=== PATIENT | male | born 1985 | race African-American/Black ===

== ENCOUNTER 2022-01-31 08:00 | Outpatient (CLI) | payer OTHER ==
[2022-01-31 12:48] LABS: ALBUMIN 4.8 g/dL (3.2-5.5); ALBUMIN/GLOBULIN RATIO 1.3 (1.0-2.2); BILIRUBIN,TOTAL 1.1 mg/dL (0.2-1.0); CALCIUM 9.3 mg/dL (8.5-10.3); CREATININE 1.1 mg/dL (0.6-1.2); POTASSIUM 3.9 mmol/L (3.5-5.0); TOTAL PROTEIN 8.5 g/dL (6.7-8.2)
[2022-01-31 13:10] LABS: BILIRUBIN,URINE NEGATIVE (NEGATIVE); GLUCOSE, URINE (UA) NEGATIVE (NEGATIVE); KETONES,URINE (UA) NEGATIVE (NEGATIVE); LEUKOCYTE ESTERASE, URINE NEGATIVE (NEGATIVE); NITRITE,URINE NEGATIVE (NEGATIVE); OCCULT BLOOD,URINE TRACE-INTA (NEGATIVE); PH,URINE 7.5 PH (5.0-7.5); PROTEIN,URINE NEGATIVE (NEGATIVE); UROBILINOGEN,URINE 0.2 (NORMAL) E.U./dL (NORMAL)
[2022-01-31 13:15] LABS: BASOPHILS # (AUTO) 0.1 10^3/uL (0.0-0.1); BASOPHILS % (AUTO) 0.5 %; EOSINOPHILS # (AUTO) 0.1 10^3/uL (0.0-0.7); EOSINOPHILS % (AUTO) 1.1 %; HCT - HEMATOCRIT 47.5 % (42.0-52.0); HGB - HEMOGLOBIN 15.2 g/dL (14.0-18.0); LYMPHOCYTES # (AUTO) 2.8 10^3/uL (1.5-3.5); LYMPHOCYTES % (AUTO) 27.3 %; MEAN CORPUSCULAR VOLUME 84.5 fL (80.0-94.0); MEAN PLATELET VOLUME 11.6 fL (7.4-11.4); MONOCYTES # (AUTO) 0.7 10^3/uL (0.0-1.0); NEUTROPHILS # (AUTO) 6.6 10^3/uL (1.5-6.6); NEUTROPHILS % (AUTO) 63.9 %; PLT - PLATELET COUNT 274 10^3/uL (130-450); RED BLOOD COUNT 5.62 10^6/uL (4.70-6.10); RED CELL DISTRIBUTION WIDTH 12.8 % (12.0-15.0); WHITE BLOOD COUNT 10.4 x10^3/uL (4.8-10.8)
[2022-01-31 13:47] LABS: CLARITY,URINE CLEAR (CLEAR)
== END 2022-01-31 23:59 ==
LOC: LAB.N 08:00
PROVIDERS: ATTEND Nurse Practitioner
DX: R19.7 Diarrhea, unspecified (principal)
CPT/HCPCS: 36415; 80053; 81001; 81003; 82150; 83690; 85025; 87086

== ENCOUNTER 2022-02-01 17:57 | Emergency (ER) | payer OTHER ==
[2022-02-01 18:06] VITALS: BP 152/94
[2022-02-01] MEDS ORDERED: MAG HYDROX/AL HYDROX/SIMETH 30 ML UDC PO STA (18:18)
[2022-02-01] MEDS ORDERED: LIDOCAINE VISCOUS 2% 15 ML UDC MM STA (18:18)
--- NOTE | 2022-02-01 18:19 | ED Physician Documentation ---
PD HPI ABD PAIN - Stated complaint Stated Complaint: ABD PX - Chief complaint Chief Complaint: Abd Pain - History obtained from History obtained from: Patient - Additional information Additional information: 36-year-old gentleman has had 2 days of upper abdominal discomfort associated with lack of energy and loose stools which responded to Imodium. He was seen at the urgent care yesterday, had labs done with a total white count of 10.4 and no shift. No therapeutics were given. He has a history of remote appendectomy, otherwise no abdominal surgeries or issues in the past. Review of Systems Constitutional: reports: Reviewed and negative Cardiac: reports: Reviewed and negative Respiratory: reports: Reviewed and negative PD PAST MEDICAL HISTORY - Present Medications Home Medications: Ambulatory Orders Medication Instructions Recorded Confirmed Bempedoic Acid/Ezetimibe [Nexlizet 1 tab PO DAILY 02/01/22 02/01/22 180-10 mg Tablet] Losartan Potassium 25 mg PO DAILY 02/01/22 02/01/22 Omeprazole 40 mg PO DAILY #30 cap 02/01/22 - Allergies Allergies/Adverse Reactions: Allergies Allergy/AdvReac Type Severity Reaction Status Date / Time No Known Drug Allergies Allergy Verified 02/01/22 18:06 PD ED PE NORMAL - Vitals Vital signs reviewed: Yes - General General: Alert and oriented X 3, No acute distress - Abdomen Abdomen: Normal bowel sounds, Soft, Other (Minimal upper abdominal tenderness without surgical signs.) - Neuro Neuro: Alert and oriented X 3, Normal speech Results - Vitals Vitals: Vital Signs - 24 hr 02/01/22 02/01/22 18:03 18:42 Temperature 36.3 C L Heart Rate 84 Respiratory 16 14 Rate Blood Pressure 152/94 H O2 Saturation 99 Oxygen O2 Source Room air - Labs Labs: Laboratory Tests 02/01/22 02/01/22 18:24 18:24 WBC 13.2 H RBC 5.43 Hgb 14.9 Hct 45.1 MCV 83.1 MCH 27.4 MCHC 33.0 RDW 12.7 Plt Count 268 MPV 10.7 Neut # (Auto) 7.8 H Lymph # (Auto) 4.2 H Ceiba # (Auto) 1.1 H Eos # (Auto) 0.1 Baso # (Auto) 0.1 Absolute Nucleated RBC 0.00 Nucleated RBC % 0.0 Sodium 137 Potassium 3.0 L Chloride 101 Carbon Dioxide 26 Anion Gap 10.0 BUN 12 Creatinine 1.1 Estimated GFR (MDRD) 93 Glucose 101 H Calcium 9.1 Total Bilirubin 1.0 AST 19 ALT 21 Alkaline Phosphatase 29 L Total Protein 8.4 H Albumin 4.8 Globulin 3.7 Albumin/Globulin Ratio 1.3 Lipase 29 PD MEDICAL DECISION MAKING - ED course ED course: 36-year-old gentleman with upper abdominal pain, fairly benign exam and he did get significant relief with a GI cocktail here suggesting a gastric cause. As such we will treat with PPI pending follow-up and he was given close return precautions. Departure - Departure Disposition: Home, Self Care Clinical Impression: Gastritis Qualifiers: Gastritis type: unspecified gastritis Chronicity: acute Gastritis bleeding: without bleeding Qualified Code(s): K29.00 - Acute gastritis without bleeding Condition: Good Record reviewed to determine appropriate education?: Yes Instructions: ED PUD Vs Gastritis Prescriptions: Omeprazole 40 mg PO DAILY #30 cap Comments: As discussed, I think you have gastritis which is inflammation of the stomach. If you worsen or fail to improve over the next day please return for reevaluation. Also return immediately if you run a fever if pain is severe s ignificant or severe. Antacid medicine should help. Avoid nonsteroidal anti- inflammatory drugs such as ibuprofen/Aleve/naproxen/Motrin/Advil. Cut down on caffeine.
[2022-02-01 18:30] LABS: BASOPHILS # (AUTO) 0.1 10^3/uL (0.0-0.1); BASOPHILS % (AUTO) 0.4 %; EOSINOPHILS # (AUTO) 0.1 10^3/uL (0.0-0.7); EOSINOPHILS % (AUTO) 0.7 %; HCT - HEMATOCRIT 45.1 % (42.0-52.0); HGB - HEMOGLOBIN 14.9 g/dL (14.0-18.0); LYMPHOCYTES # (AUTO) 4.2 10^3/uL (1.5-3.5); LYMPHOCYTES % (AUTO) 31.7 %; MEAN CORPUSCULAR HEMOGLOBIN 27.4 pg (27.0-31.0); MEAN CORPUSCULAR VOLUME 83.1 fL (80.0-94.0); MEAN PLATELET VOLUME 10.7 fL (7.4-11.4); MONOCYTES # (AUTO) 1.1 10^3/uL (0.0-1.0); NEUTROPHILS # (AUTO) 7.8 10^3/uL (1.5-6.6); PLT - PLATELET COUNT 268 10^3/uL (130-450); RED BLOOD COUNT 5.43 10^6/uL (4.70-6.10); RED CELL DISTRIBUTION WIDTH 12.7 % (12.0-15.0); WHITE BLOOD COUNT 13.2 x10^3/uL (4.8-10.8)
[2022-02-01 18:44] LABS: ALBUMIN 4.8 g/dL (3.2-5.5); ALBUMIN/GLOBULIN RATIO 1.3 (1.0-2.2); CALCIUM 9.1 mg/dL (8.5-10.3); CREATININE 1.1 mg/dL (0.6-1.2); TOTAL PROTEIN 8.4 g/dL (6.7-8.2)
[2022-02-01] MEDS ORDERED: PANTOPRAZOLE 40 MG TABLET PO STA (18:53)
== END 2022-02-01 19:01 | disposition home or self-care (01) ==
LOC: ED 17:57
DX: K29.00 Acute gastritis without bleeding (principal)
CPT/HCPCS: 36415; 80053; 83690; 85025; 99282; 99283; A9270

== ENCOUNTER 2022-02-02 15:12 | Emergency (ER) | payer OTHER ==
--- NOTE | 2022-02-02 15:33 | ED Physician Documentation ---
PD HPI ABD PAIN - Stated complaint Stated Complaint: ABD PX,FREQUENT URINATION - Chief complaint Chief Complaint: Abd Pain - History obtained from History obtained from: Patient - Additional information Additional information: He has had upper abdominal discomfort for about 4 days now. Originally seen in the urgent care and subsequently yesterday here in the emergency department. It is a burning sensation. He had relatively unremarkable labs although yesterday his white count had gone up to 13. Negative urinalysis on the first day. He was given a GI cocktail with improvement and subsequently put on a PPI. He returns today feeling like he is somewhat better but not completely improved but with a new sensation of urinary frequency without dysuria. The pain is in the upper abdomen. Nonradiating. Nothing makes it better or worse. Review of Systems Constitutional: denies: Fever, Chills Ears: reports: Reviewed and negative Throat: reports: Sore throat, Reviewed and negative Cardiac: denies: Chest pain / pressure, Palpitations Respiratory: reports: Reviewed and negative. denies: Dyspnea, Cough PD PAST MEDICAL HISTORY - Present Medications Home Medications: Ambulatory Orders Medication Instructions Recorded Confirmed Bempedoic Acid/Ezetimibe [Nexlizet 1 tab PO DAILY 02/01/22 02/02/22 180-10 mg Tablet] Losartan Potassium 25 mg PO DAILY 02/01/22 02/02/22 Omeprazole 40 mg PO DAILY #30 cap 02/01/22 02/02/22 - Allergies Allergies/Adverse Reactions: Allergies Allergy/AdvReac Type Severity Reaction Status Date / Time No Known Drug Allergies Allergy Verified 02/02/22 15:24 PD ED PE NORMAL - Vitals Vital signs reviewed: Yes - General General: Alert and oriented X 3, No acute distress - Cardiac Cardiac: RRR, No murmur - Respiratory Respiratory: No respiratory distress, Clear bilaterally - Abdomen Abdomen: Other (Minimal epigastric tenderness, no surgical signs, no lower abdominal tenderness) - Derm Derm: Normal color, Warm and dry - Extremities Extremities: No edema, No calf tenderness / cord - Neuro Neuro: Alert and oriented X 3, Normal speech Results - Vitals Vitals: Vital Signs - 24 hr 02/02/22 02/02/22 15:19 17:24 Temperature 36.3 C L Heart Rate 86 73 Respiratory 24 16 Rate Blood Pressure 172/87 H 165/86 H O2 Saturation 100 94 Oxygen O2 Source Room air - EKG (time done) 1536 Rate: Rate (enter#) (90) Rhythm: NSR, LAE [place]: Normal Intervals: Normal NV QRS: Normal Ischemia: Normal ST segments - Labs Labs: Laboratory Tests 02/02/22 02/02/22 02/02/22 15:36 15:36 15:50 WBC 14.0 H RBC 5.53 Hgb 15.1 Hct 46.3 MCV 83.7 MCH 27.3 MCHC 32.6 RDW 12.6 Plt Count 274 MPV 10.9 Neut # (Auto) 9.8 H Lymph # (Auto) 3.3 [place] # (Auto) 0.8 Eos # (Auto) 0.1 Baso # (Auto) 0.1 Absolute Nucleated RBC 0.00 Nucleated RBC % 0.0 Sodium 138 Potassium 3.4 L Chloride 101 Carbon Dioxide 27 Anion Gap 10.0 BUN 10 Creatinine 1.1 Estimated GFR (MDRD) 93 Glucose 124 H Calcium 9.4 Total Bilirubin 0.8 AST 20 ALT 21 Alkaline Phosphatase 32 L Total Protein 8.6 H Albumin 4.6 Globulin 4.0 Albumin/Globulin Ratio 1.1 Lipase 31 Urine Color YELLOW Urine Clarity HAZY Urine pH 7.0 Ur Specific [place] 1.015 Urine Protein NEGATIVE Urine Glucose (UA) NEGATIVE Urine Ketones NEGATIVE Urine Occult Blood SMALL H Urine Nitrite NEGATIVE Urine Bilirubin NEGATIVE Urine Urobilinogen 1 (NORMAL) Ur Leukocyte Esterase NEGATIVE Urine RBC 0-5 Urine WBC 0-3 Ur Squamous Epith Cells RARE Squamous Urine Bacteria Rare Ur Microscopic Review INDICATED Urine Culture Comments NOT INDICATED - Rads (name of study) CT of the abdomen pelvis with IV contrast Radiology: EMP read contemporaneously (Incidental right nephrolithiasis which was discussed with the patient, otherwise negative) PD MEDICAL DECISION MAKING - ED course ED course: This is a young man with abdominal pain, epigastric, and seems like gastritis given his improvement with GI cocktail yesterday. He has been on a PPI but reasonable to expect that that may not have kicked in yet given the timeframe. He is status post remote appendectomy. He declines pain medications now, given his history and third visit for same we will expand the work-up with CT imaging and EKG although admittedly I expect both of these to be low yield. CT except for the right nephrolithiasis that was discussed with the patient. He declined any meds while here in imaging was negative, remained having a very unimpressive examination. When discussing CT imaging he admitted that he was quite anxious and had googled a lot today which may have necessitated the repeat visit. He seemed relieved that the imaging was negative. Departure - Departure Disposition: Home, Self Care Clinical Impression: Gastritis Qualifiers: Gastritis type: unspecified gastritis Chronicity: acute Gastritis bleeding: without bleeding Qualified Code(s): K29.00 - Acute gastritis without bleeding Condition: Good Record reviewed to determine appropriate education?: Yes Instructions: ED Gastritis Comments: Continue the prescription we started yesterday. I suspect after another day or 2 of that you will feel better. Return for new or worsening symptoms. Continue the dietary advice we discussed yesterday. Follow-up with your doctor, next available appointment.
[2022-02-02] MEDS ORDERED: IOVERSOL 320 100 ML VIAL IVP ONE ×2 (15:48→16:36)
[2022-02-02 15:56] LABS: BASOPHILS # (AUTO) 0.1 10^3/uL (0.0-0.1); BASOPHILS % (AUTO) 0.4 %; EOSINOPHILS # (AUTO) 0.1 10^3/uL (0.0-0.7); EOSINOPHILS % (AUTO) 0.6 %; HCT - HEMATOCRIT 46.3 % (42.0-52.0); HGB - HEMOGLOBIN 15.1 g/dL (14.0-18.0); LYMPHOCYTES # (AUTO) 3.3 10^3/uL (1.5-3.5); LYMPHOCYTES % (AUTO) 23.3 %; MEAN CORPUSCULAR HEMOGLOBIN 27.3 pg (27.0-31.0); MEAN CORPUSCULAR HGB CONC 32.6 g/dL (32.0-36.0); MEAN CORPUSCULAR VOLUME 83.7 fL (80.0-94.0); MEAN PLATELET VOLUME 10.9 fL (7.4-11.4); MONOCYTES # (AUTO) 0.8 10^3/uL (0.0-1.0); MONOCYTES % (AUTO) 5.9 %; NEUTROPHILS # (AUTO) 9.8 10^3/uL (1.5-6.6); NEUTROPHILS % (AUTO) 69.6 %; PLT - PLATELET COUNT 274 10^3/uL (130-450); RED BLOOD COUNT 5.53 10^6/uL (4.70-6.10); RED CELL DISTRIBUTION WIDTH 12.6 % (12.0-15.0)
[2022-02-02 15:59] LABS: BILIRUBIN,URINE NEGATIVE (NEGATIVE); GLUCOSE, URINE (UA) NEGATIVE (NEGATIVE); KETONES,URINE (UA) NEGATIVE (NEGATIVE); LEUKOCYTE ESTERASE, URINE NEGATIVE (NEGATIVE); NITRITE,URINE NEGATIVE (NEGATIVE); OCCULT BLOOD,URINE SMALL (NEGATIVE); PROTEIN,URINE NEGATIVE (NEGATIVE); UROBILINOGEN,URINE 1 (NORMAL) E.U./dL (NORMAL)
[2022-02-02 16:08] LABS: ALBUMIN 4.6 g/dL (3.2-5.5); ALBUMIN/GLOBULIN RATIO 1.1 (1.0-2.2); BILIRUBIN,TOTAL 0.8 mg/dL (0.2-1.0); CALCIUM 9.4 mg/dL (8.5-10.3); CREATININE 1.1 mg/dL (0.6-1.2); POTASSIUM 3.4 mmol/L (3.5-5.0); TOTAL PROTEIN 8.6 g/dL (6.7-8.2)
[2022-02-02 16:09] LABS: CLARITY,URINE HAZY (CLEAR)
[2022-02-02 16:10] LABS: RBC,URINE 0-5 /HPF (0-5); SQUAMOUS EPITHELIAL CELL,UR RARE Squamous (<= Few); WBC,URINE 0-3 /HPF (0-3)
[2022-02-02 16:11] LABS: BACTERIA,URINE Rare /HPF (None Seen)
--- NOTE | 2022-02-02 17:27 | CT Report ---
PROCEDURE: Abdomen/Pelvis W INDICATIONS: IV only, epigastric pain CONTRAST: IV CONTRAST: Optiray 320 ml: 100 PO CONTRAST: *NO PO CONTRAST TECHNIQUE: After the administration of intravenous contrast, 5 mm thick sections acquired from the diaphragms to the symphysis. 5 mm thick coronal and sagittal reformats were acquired. For radiation dose reducti on, the following was used: automated exposure control, adjustment of mA and/or kV according to ayana ent size. COMPARISON: None FINDINGS: Image quality: Excellent. ABDOMEN: Lung bases: Lung bases are clear. Heart size is normal. Solid organs: Liver and spleen are normal in size and enhancement. Gallbladder is unremarkable as v isualized Biliary system is non dilated. Pancreas enhances normally. No adrenal nodules. Kidneys demonstrate normal size and enhancement, without hydronephrosis. 4 mm nonobstructing right renal ston e. Peritoneum and bowel: Bowel loops demonstrate normal wall thickness and caliber. No free fluid or a ir. Nodes and vessels: No retroperitoneal or mesenteric adenopathy by size criteria. Aorta and inferior vena cava are normal in size. Miscellaneous: No ventral hernias. PELVIS: Genitourinary: Bladder wall thickness is normal. Miscellaneous: No inguinal hernias or adenopathy. Bones: No suspicious bony lesions. No vertebral body compression fractures. IMPRESSION: 1. Right nephrolithiasis. 2. No evidence of acute abdominal process. Reviewed by: Gallito Green MD on 02/02/2022 4:26 PM [facility] Approved by: Gallito Green MD on 02/02/2022 4:26 PM [facility] Station ID: [id number]
[2022-02-02 17:46] VITALS: BP 163/78
== END 2022-02-02 17:46 | disposition home or self-care (01) ==
LOC: ED 15:12
DX: K29.00 Acute gastritis without bleeding (principal)
CPT/HCPCS: 36415; 74177; 80053; 81001; 83690; 85025; 93005; 99282; 99284; Q9967; 81003; 87086

== ENCOUNTER 2022-02-04 03:59 | Outpatient (CLI) | payer OTHER | END 2022-02-04 04:00 | disposition EMS.NT | LOC: EMS 03:59 | DX: R10.10 Upper abdominal pain, unspecified (principal) ==

== ENCOUNTER 2022-03-17 07:54 | Emergency (ER) | payer OTHER ==
--- NOTE | 2022-03-17 08:11 | ED Physician Documentation ---
PD HPI MALE - Stated complaint Stated Complaint: MALE - Chief complaint Chief Complaint: UTI - History obtained from History obtained from: Patient - History of Present Illness Timing - onset: How many days ago (2) Timing - duration: Days (2) Timing - details: Gradual onset, Still present, Intermittant Associated symptoms: Dysuria, Urinary frequency, Abdominal pain (mild intermittent left mid to upper abd, worse with torsional movement and palpation.). No: Discharge, Genital sore / lesion, Scrotal swelling PD HPI MALE CONTRIB FACTORS: Sexually active (just with his .) Similar symptoms before: Has not had sx before (seen a month ago for upper abd pain Dx with gastritis. That has resolved with PPIs and antacids. No prior symptoms of dysuria.) Recently seen: Emergency Dept (1 month ago for different problem/symptoms.) Review of Systems Constitutional: denies: Fever, Chills GI: reports: Abdominal Pain (mild left abd intermittently for 1-2 days.). denies: Nausea, Vomiting, Diarrhea : reports: Dysuria, Frequency. denies: Hematuria, Discharge, Testicular pain Skin: denies: Rash, Lesions PD PAST MEDICAL HISTORY - Past Medical History Cardiovascular: Hypertension Respiratory: None Endocrine/Autoimmune: None - Present Medications Home Medications: Ambulatory Orders Medication Instructions Recorded Confirmed Bempedoic Acid/Ezetimibe [Nexlizet 1 tab PO DAILY 02/01/22 03/17/22 180-10 mg Tablet] Losartan Potassium 25 mg PO DAILY 02/01/22 03/17/22 Ciprofloxacin HCl [Cipro] 500 mg PO BID #10 tablet 03/17/22 - Allergies Allergies/Adverse Reactions: Allergies Allergy/AdvReac Type Severity Reaction Status Date / Time No Known Drug Allergies Allergy Verified 03/17/22 07:59 PD ED PE NORMAL - Vitals Vital signs reviewed: Yes - General General: Alert and oriented X 3, No acute distress, Well developed/nourished - Abdomen Abdomen: Normal bowel sounds, Soft, Non distended, No organomegaly, Other (minimal tenderness left mid to upper abd without guarding nor percussion/rebound tenderness. ) - Male Male : Other (normal external genitalia. No rash nor sores. No hernia. Scrotum not tender. ) - Rectal Rectal: Deferred - Back Back: No CVA TTP Results - Vitals Vitals: Vital Signs - 24 hr 03/17/22 08:00 Temperature 36.9 C Heart Rate 99 Respiratory 19 Rate Blood Pressure 167/100 H O2 Saturation 100 Oxygen O2 Source Room air - Labs Labs: Laboratory Tests 03/17/22 08:10 Urine Color YELLOW Urine Clarity CLEAR Urine pH 8.0 H Ur Specific [place] 1.015 Urine Protein NEGATIVE Urine Glucose (UA) NEGATIVE Urine Ketones NEGATIVE Urine Occult Blood NEGATIVE Urine Nitrite NEGATIVE Urine Bilirubin NEGATIVE Urine Urobilinogen 0.2 (NORMAL) Ur Leukocyte Esterase NEGATIVE Ur Microscopic Review NOT INDICATED Urine Culture Comments NOT INDICATED PD MEDICAL DECISION MAKING - ED course Complexity details: reviewed old records, reviewed results, d/w patient Departure - Departure Disposition: 01 Home, Self Care Clinical Impression: Dysuria Condition: Stable Record reviewed to determine appropriate education?: Yes Instructions: ED Dysuria Uncertain Cause Follow-Up: Carl Kam MD [Primary Care Provider] - Prescriptions: Ciprofloxacin HCl [Cipro] 500 mg PO BID #10 tablet Comments: Your urine test does not show obvious signs of infection. However your symptoms would be very suggestive of a urethral or bladder infection. As such I would treated empirically with antibiotic twice daily for 5 days. Recheck if not improved over the next few days. Return if worse. Tylenol if needed for any pains. I transmitted your prescription to [facility] pharmacy in [place]. You do have a urine culture test with results pending. Will likely get that later or tomorrow and will call you if there is any confirm signs of of bacterial infection. I would still go with presumptive at this point.
[2022-03-17 08:57] LABS: BILIRUBIN,URINE NEGATIVE (NEGATIVE); GLUCOSE, URINE (UA) NEGATIVE (NEGATIVE); KETONES,URINE (UA) NEGATIVE (NEGATIVE); LEUKOCYTE ESTERASE, URINE NEGATIVE (NEGATIVE); NITRITE,URINE NEGATIVE (NEGATIVE); OCCULT BLOOD,URINE NEGATIVE (NEGATIVE); PROTEIN,URINE NEGATIVE (NEGATIVE); UROBILINOGEN,URINE 0.2 (NORMAL) E.U./dL (NORMAL)
[2022-03-17 09:18] LABS: CLARITY,URINE CLEAR (CLEAR)
[2022-03-17] MEDS ORDERED: CIPROFLOXACIN 250 MG TABLET PO STA (09:24)
[2022-03-17 09:39] VITALS: BP 147/87
[2022-03-17 22:28] LABS: CHLAMYDIA TRACHOMATIS DNA NEGATIVE (NEGATIVE); NEISSERIA GONORRHOEAE DNA NEGATIVE (NEGATIVE)
== END 2022-03-17 09:37 | disposition home or self-care (01) ==
LOC: ED 07:54
DX: R30.0 Dysuria (principal); I10 Essential (primary) hypertension
CPT/HCPCS: 81003; 87491; 87591; 99283; A9270; 81001; 87086; 87661

== ENCOUNTER 2022-03-20 03:05 | Outpatient (CLI) | payer OTHER | END 2022-03-20 03:06 | disposition EMS.NT | LOC: EMS 03:05 | DX: F41.9 Anxiety disorder, unspecified (principal) ==

== ENCOUNTER 2022-03-20 04:05 | Emergency (ER) | payer OTHER ==
[2022-03-20 04:40] LABS: BASOPHILS # (AUTO) 0.1 10^3/uL (0.0-0.1); BASOPHILS % (AUTO) 0.5 %; EOSINOPHILS # (AUTO) 0.1 10^3/uL (0.0-0.7); EOSINOPHILS % (AUTO) 0.4 %; HCT - HEMATOCRIT 45.4 % (42.0-52.0); HGB - HEMOGLOBIN 14.8 g/dL (14.0-18.0); LYMPHOCYTES # (AUTO) 2.4 10^3/uL (1.5-3.5); LYMPHOCYTES % (AUTO) 17.5 %; MEAN CORPUSCULAR HEMOGLOBIN 27.2 pg (27.0-31.0); MEAN CORPUSCULAR HGB CONC 32.6 g/dL (32.0-36.0); MEAN CORPUSCULAR VOLUME 83.3 fL (80.0-94.0); MEAN PLATELET VOLUME 10.9 fL (7.4-11.4); MONOCYTES # (AUTO) 0.9 10^3/uL (0.0-1.0); MONOCYTES % (AUTO) 6.8 %; NEUTROPHILS # (AUTO) 10.2 10^3/uL (1.5-6.6); NEUTROPHILS % (AUTO) 74.5 %; PLT - PLATELET COUNT 281 10^3/uL (130-450); RED BLOOD COUNT 5.45 10^6/uL (4.70-6.10); RED CELL DISTRIBUTION WIDTH 12.6 % (12.0-15.0); WHITE BLOOD COUNT 13.7 x10^3/uL (4.8-10.8)
[2022-03-20 04:50] LABS: BILIRUBIN,URINE NEGATIVE (NEGATIVE); GLUCOSE, URINE (UA) NEGATIVE (NEGATIVE); KETONES,URINE (UA) NEGATIVE (NEGATIVE); LEUKOCYTE ESTERASE, URINE NEGATIVE (NEGATIVE); NITRITE,URINE NEGATIVE (NEGATIVE); OCCULT BLOOD,URINE TRACE-INTA (NEGATIVE); PROTEIN,URINE NEGATIVE (NEGATIVE); UROBILINOGEN,URINE 0.2 (NORMAL) E.U./dL (NORMAL)
[2022-03-20 04:51] LABS: CLARITY,URINE CLEAR (CLEAR)
[2022-03-20 04:53] LABS: ALBUMIN 4.3 g/dL (3.2-5.5); ALBUMIN/GLOBULIN RATIO 1.1 (1.0-2.2); BILIRUBIN,TOTAL 0.7 mg/dL (0.2-1.0); CALCIUM 9.5 mg/dL (8.5-10.3); POTASSIUM 3.5 mmol/L (3.5-5.0); TOTAL PROTEIN 8.3 g/dL (6.7-8.2)
--- NOTE | 2022-03-20 05:03 | ED Physician Documentation ---
PD HPI ABD PAIN - Stated complaint Stated Complaint: LLQ PAIN - Chief complaint Chief Complaint: Abd Pain - History obtained from History obtained from: Patient - Additional information Additional information: Patient is a 36-year-old male with Recent diagnoses of gastritis and dysuria presenting for intermittent left upper quadrant pain. Patient reports having this pain on and off since 2019 and having another episode this evening. He has had multiple recent visits to the emergency department for abdominal complaints including on January 31 and February 01 at which time he had a negative CT abdomen and pelvis. He has followed up with his primary care doctor. He has never had a colonoscopy or EGD. He is prescribed omeprazole and sucralfate which she has been taking. He was on a Web MD this evening and thought his symptoms could be related to leukemia which made him feelWorried and prompted him to call 911.Patient denies fever, chest pain, difficulty breathing, diarrhea, blood in his stools, unintentional weight loss, dysuria, weakness. Patient also reports seeing his doctor yesterday with a urine test and lab work. Review of Systems Constitutional: denies: Fever Nose: denies: Congestion Cardiac: denies: Chest pain / pressure, Palpitations Respiratory: denies: Dyspnea, Cough GI: reports: Abdominal Pain. denies: Nausea, Vomiting : denies: Dysuria Skin: denies: Rash Musculoskeletal: denies: Back pain Neurologic: denies: Headache PD PAST MEDICAL HISTORY - Past Medical History Past Medical History: Yes Cardiovascular: Hypertension, High cholesterol Respiratory: None Neuro: Other Endocrine/Autoimmune: None GI: None : None HEENT: None Psych: None Musculoskeletal: None Derm: None - Past Surgical History Past Surgical History: Yes General: Appendectomy - Present Medications Home Medications: Ambulatory Orders Medication Instructions Recorded Confirmed Bempedoic Acid/Ezetimibe [Nexlizet 1 tab PO DAILY 02/01/22 03/20/22 180-10 mg Tablet] Losartan Potassium 25 mg PO DAILY 02/01/22 03/20/22 Ciprofloxacin HCl [Cipro] 500 mg PO BID #10 tablet 03/17/22 Esomeprazole Magnesium [Nexium] 40 mg PO HS 03/20/22 03/20/22 Sucralfate [Carafate] 1 gm PO TID 03/20/22 03/20/22 - Allergies Allergies/Adverse Reactions: Allergies Allergy/AdvReac Type Severity Reaction Status Date / Time No Known Drug Allergies Allergy Verified 03/20/22 04:14 - Social History Does the pt smoke?: No Smoking Status: Never smoker Does the pt drink ETOH?: Yes Does the pt have substance abuse?: No - Immunizations Immunizations are current?: Yes - POLST Patient has POLST: No PD ED PE NORMAL - General General: Alert and oriented X 3, No acute distress, Well developed/nourished - HEENT HEENT: Atraumatic, Moist mucous membranes - Neck Neck: Supple, no meningeal sign - Cardiac Cardiac: RRR, No murmur, Strong equal pulses - Respiratory Respiratory: No respiratory distress, Clear bilaterally - Abdomen Abdomen: Normal bowel sounds, Soft, Non tender, Non distended - Derm Derm: Normal color, Warm and dry - Extremities Extremities: No deformity, No edema - Neuro Neuro: Alert and oriented X 3, Normal speech - Psych Psych: Normal mood Results - Vitals Vitals: Vital Signs - 24 hr 03/20/22 03/20/22 03/20/22 04:10 04:47 05:27 Temperature 36.2 C L 36.2 C L Heart Rate 85 82 81 Respiratory 16 18 17 Rate Blood Pressure 154/89 H 149/92 H 145/90 H O2 Saturation 100 100 99 Oxygen O2 Source Room air - Labs Labs: Laboratory Tests 03/20/22 03/20/22 03/20/22 04:30 04:30 04:40 WBC 13.7 H RBC 5.45 Hgb 14.8 Hct 45.4 MCV 83.3 MCH 27.2 MCHC 32.6 RDW 12.6 Plt Count 281 MPV 10.9 Neut # (Auto) 10.2 H Lymph # (Auto) 2.4 [place] # (Auto) 0.9 Eos # (Auto) 0.1 Baso # (Auto) 0.1 Absolute Nucleated RBC 0.00 Nucleated RBC % 0.0 Sodium 137 Potassium 3.5 Chloride 99 L Carbon Dioxide 27 Anion Gap 11.0 BUN 15 Creatinine 1.0 Estimated GFR (MDRD) 104 Glucose 114 H Calcium 9.5 Total Bilirubin 0.7 AST 17 ALT 21 Alkaline Phosphatase 33 L Total Protein 8.3 H Albumin 4.3 Globulin 4.0 Albumin/Globulin Ratio 1.1 Lipase 31 Urine Color YELLOW Urine Clarity CLEAR Urine pH 7.0 Ur Specific [place] 1.010 Urine Protein NEGATIVE Urine Glucose (UA) NEGATIVE Urine Ketones NEGATIVE Urine Occult Blood TRACE-INTA Urine Nitrite NEGATIVE Urine Bilirubin NEGATIVE Urine Urobilinogen 0.2 (NORMAL) Ur Leukocyte Esterase NEGATIVE Ur Microscopic Review NOT INDICATED Urine Culture Comments NOT INDICATED PD MEDICAL DECISION MAKING - ED course ED course: Patient is a 36-year-old male with history of intermittent episodes of left upper quadrant pain. Has recently been seen in our ER at least 2 times for this in January and more recently for UTI symptoms. Patient is also been seen by his primary care provider for this. Patient he was searching online and Became concerned he could have leukemia which prompted him to call 911.His abdominal exam is benign at this time with no reports of pain. His labs are unrevealing. He has had a CT scan for this 1 month ago with similar presentation and no acute findings. We do long conversation at this time do not feel he needs a repeat CT scan. He is already prescribed omeprazole and sucralfate which she has been taking. Recommend continuing with these medications and to follow-up with his doctor on Friday. His doctor did order outpatient labs yesterday which the patient had done. Patient denies any other new symptoms warranting emergent imaging and feels reassured.He is aware of return precautions. Departure - Departure Disposition: Home, Self Care Clinical Impression: Abdominal pain Qualifiers: Abdominal location: left upper quadrant Qualified Code(s): R10.12 - Left upper quadrant pain Condition: Stable Instructions: ED PUD Vs Gastritis Comments: Buddy you were evaluated for abdominal pain. Your labs are very reassuring and looks similar to the labs you had taken 1 month ago. The exact cause of your symptoms is unclear but could be related to irritation of the lining of your stomach or an ulcer. You may need a referral to a GI doctor to have a scope done. I do not think you need another CT scan today as your symptoms are similar to previous and your previous CT scan 1 month ago did not have any significant findings. Please continue with taking the medications prescribed by your doctor and keep your follow-up appointment for Friday. You also mentioned having trouble sleeping. You can try [id number] melatonin at night to help you sleep.If it anytime it seems that your symptoms are different such as pain that is worsening or in a new location or you develop any new symptoms then please consider coming back to the emergency department. Discharge Date/Time: 03/20/22 05:30
[2022-03-20 05:30] VITALS: BP 145/90
== END 2022-03-20 05:30 | disposition home or self-care (01) ==
LOC: EDUNIT# → ED 04:05
DX: R10.12 Left upper quadrant pain (principal); I10 Essential (primary) hypertension
CPT/HCPCS: 36415; 80053; 81001; 81003; 83690; 85025; 87086; 99283; 99284

== ENCOUNTER 2022-12-19 07:36 | Emergency (ER) | payer OTHER ==
[2022-12-19 07:49] VITALS: BP 157/82
--- NOTE | 2022-12-19 08:05 | ED Physician Documentation ---
PD HPI GI BLEED - Stated complaint Stated Complaint: MALE GI - Chief complaint Chief Complaint: Abd Pain - History obtained from History obtained from: Patient - History of Present Illness Timing - onset: How many days ago (2) Timing - duration: Days (2) Timing - details: Intermittant (He noted some red specks in his stool that was somewhat loose and also a red coloring to it 2 days ago and again yesterday. He noticed some again this morning though not as prominent. Concern for GI bleed as he does have a history of gastritis.) Associated symptoms: Maroon stool (red/maroon iwth red specks.) Contributing factors: No: Sick contact, Bad food, Recent antibiotics, NSAID use Similar symptoms before: Diagnosis (has had gastritis in the past but no noted GI bleeding.) Recently seen: Emergency Dept (few months ago for back pain with short term symptoms and use of NSAIDs, but not ongoing.) Review of Systems Constitutional: denies: Fever, Chills GI: denies: Abdominal Pain, Nausea, Vomiting, Constipation, Diarrhea : denies: Dysuria PD PAST MEDICAL HISTORY - Past Medical History Cardiovascular: Hypertension, High cholesterol Respiratory: None Neuro: Other Endocrine/Autoimmune: None GI: Ulcers (gastritis in March 2022) : Kidney stones HEENT: None Psych: None Musculoskeletal: None Derm: None - Past Surgical History Past Surgical History: Yes General: Appendectomy - Present Medications Home Medications: Ambulatory Orders Medication Instructions Recorded Confirmed Bempedoic Acid/Ezetimibe [Nexlizet 1 tab PO DAILY 02/01/22 03/20/22 180-10 mg Tablet] Losartan Potassium 25 mg PO DAILY 02/01/22 03/20/22 Ciprofloxacin HCl [Cipro] 500 mg PO BID #10 tablet 03/17/22 Esomeprazole Magnesium [Nexium] 40 mg PO HS 03/20/22 03/20/22 Sucralfate [Carafate] 1 gm PO TID 03/20/22 03/20/22 Ibuprofen [Motrin] 600 mg PO TID PRN #25 tab 08/15/22 methocarbamoL [Robaxin] 500 mg PO Q6H PRN #20 tablet 08/15/22 - Allergies Allergies/Adverse Reactions: Allergies Allergy/AdvReac Type Severity Reaction Status Date / Time No Known Drug Allergies Allergy Verified 08/15/22 07:45 - Social History Does the pt smoke?: No Smoking Status: Never smoker Does the pt drink ETOH?: Yes Does the pt have substance abuse?: No - Immunizations Immunizations are current?: Yes - POLST Patient has POLST: No PD ED PE NORMAL - Vitals Vital signs reviewed: Yes - General General: Alert and oriented X 3, No acute distress, Well developed/nourished - Abdomen Abdomen: Soft, Non tender - Rectal Rectal: Deferred (he was able to give small stool sample in collection device in toilet. ) Results - Vitals Vitals: Vital Signs - 24 hr 12/19/22 07:45 Temperature 36.9 C Heart Rate 111 H Respiratory 18 Rate Blood Pressure 157/82 H O2 Saturation 97 Oxygen O2 Source Room air PD Medical Decision Making - ED course Complexity details: reviewed results (The patient was able to give a stool sample here without any problems. It was formed but loose without particular malodor other than stool. It test guaiac negative.), considered differential (The patient noted red flecks and also a reddish coloring of his stool 2 days ago that has continued into last night and this morning. His stools are softer but not diarrhea per se. No belly pain or rectal pain. Concerned about GI bleeding.), d/w patient ED course: The patient with a prior history of gastritis and is on acid reducing medicine. He noted some red specks and red coloring to his stool with some looseness of the stool 2 days ago and continued on yesterday and today. No overt diarrhea per se. No abdominal pain or cramps. No nausea or vomiting. No rectal pain wi th stool or wiping. We did do a guaiac exam in the lab (and I did 1 bedside) on a regular bowel movement collected and a hat. It was guaiac negative to my review. Sent 1 to the lab for official results. I presume he had some food with red coloring and material that was undigested and is looking red. Departure - Departure Disposition: 01 Home, Self Care Clinical Impression: Red stool Condition: Stable Record reviewed to determine appropriate education?: Yes Follow-Up: Carl Kam MD [Primary Care Provider] - Comments: The test for occult blood in the stool was negative. I presume the red coloring and flecks in your stool were related to dye coloring or undigested food products in your diet that came out in the stool. Recheck if worsening diarrhea or you develop belly pain or other concerns but at this point there is no blood in your stool.
== END 2022-12-19 08:12 | disposition home or self-care (01) ==
LOC: ED 07:36
DX: R19.5 Other fecal abnormalities (principal)
CPT/HCPCS: 82272; 99283

== ENCOUNTER 2023-04-21 09:50 | Emergency (ER) | payer OTHER ==
[2023-04-21 10:08] VITALS: BP 156/79
[2023-04-21] MEDS ORDERED: MAG HYDROX/AL HYDROX/SIMETH 30 ML UDC PO STA (10:18)
[2023-04-21] MEDS ORDERED: LIDOCAINE VISCOUS 2% 15 ML ORAL SYRINGE MM STA (10:18)
--- NOTE | 2023-04-21 11:28 | ED Physician Documentation ---
PD HPI ABD PAIN - Stated complaint Stated Complaint: ABD PX - Chief complaint Chief Complaint: Abd Pain - History obtained from History obtained from: Patient - Additional information Additional information: 37-year-old gentleman who ate spicy food 8 days ago and since then has had left upper quadrant pain that gets a little better each day. He states this is happened before and did well with omeprazole and would like a prescription for that. Also needs a work note for today. He has been slightly nauseous with this. No changes in bowel movements. PD PAST MEDICAL HISTORY - Past Medical History Cardiovascular: Hypertension, High cholesterol Respiratory: None Neuro: Other Endocrine/Autoimmune: None GI: Ulcers (gastritis in March 2022) : Kidney stones HEENT: None Psych: None Musculoskeletal: None Derm: None - Past Surgical History Past Surgical History: Yes General: Appendectomy - Present Medications Home Medications: Ambulatory Orders Medication Instructions Recorded Confirmed Bempedoic Acid/Ezetimibe [Nexlizet 1 tab PO DAILY 02/01/22 03/20/22 180-10 mg Tablet] Losartan Potassium 25 mg PO DAILY 02/01/22 03/20/22 Omeprazole 40 mg PO DAILY #30 cap 04/21/23 - Allergies Allergies/Adverse Reactions: Allergies Allergy/AdvReac Type Severity Reaction Status Date / Time No Known Drug Allergies Allergy Verified 04/21/23 10:05 - Social History Does the pt smoke?: No Smoking Status: Never smoker Does the pt drink ETOH?: Yes Does the pt have substance abuse?: No - Immunizations Immunizations are current?: Yes - POLST Patient has POLST: No PD ED PE NORMAL - Vitals Vital signs reviewed: Yes - General General: Alert and oriented X 3, No acute distress - Abdomen Abdomen: Normal bowel sounds, Soft, Non tender - Neuro Neuro: Alert and oriented X 3, Normal speech Results - Vitals Vitals: Vital Signs - 24 hr 04/21/23 09:58 Temperature 36.7 C Heart Rate 89 Respiratory 16 Rate Blood Pressure 156/79 H O2 Saturation 100 Oxygen O2 Source Room air PD Medical Decision Making - ED course ED course: 37-year-old gentleman with gastritis related to spicy food. Benign exam here and had complete resolution with a GI cocktail. We will start a PPI. Departure - Departure Disposition: 01 Home, Self Care Clinical Impression: Gastritis Qualifiers: Gastritis type: unspecified gastritis Chronicity: acute Gastritis bleeding: without bleeding Qualified Code(s): K29.00 - Acute gastritis without bleeding Condition: Good Record reviewed to determine appropriate education?: Yes Instructions: ED PUD Vs Gastritis Prescriptions: Omeprazole 40 mg PO DAILY #30 cap Comments: Call your doctor to arrange a follow-up appointment, make the next available appointment. In the interim, return anytime if worse or if new symptoms develop. Forms: Activity restrictions
== END 2023-04-21 11:47 | disposition home or self-care (01) ==
LOC: ED 09:50
DX: K29.00 Acute gastritis without bleeding (principal); I10 Essential (primary) hypertension
CPT/HCPCS: 99282; 99283; A9270

== ENCOUNTER 2023-11-18 11:30 | Outpatient (CLI) | payer OTHER ==
--- NOTE | 2023-11-18 13:24 | XRAY Report ---
PROCEDURE: Ankle 3 View RT INDICATIONS: RIGHT ANKLE PAIN TECHNIQUE: 3 views of the ankle were acquired. COMPARISON: None. FINDINGS: Bones: Calcaneal enthesopathy. Ankle mortise appears intact. No acute fracture. Soft tissues: No suspicious calcifications. IMPRESSION: Calcaneal enthesopathy. Otherwise, no acute radiographic abnormality. If there is high concern for fu rther derangement, consider MRI evaluation. Reviewed by: Willian Ojeda MD on 11/18/2023 1:22 PM PST Approved by: Willian Ojeda MD on 11/18/2023 1:22 PM PST Station ID: [id number]
== END 2023-11-18 11:45 | disposition home or self-care (01) ==
LOC: DI.N 11:30
PROVIDERS: ATTEND Family Medicine
DX: M77.9 Enthesopathy, unspecified (principal)

== ENCOUNTER 2023-12-14 12:46 | Emergency (ER) | payer OTHER ==
[2023-12-14 12:56] VITALS: BP 150/75; O2SAT 100
--- NOTE | 2023-12-14 14:26 | ED Physician Documentation ---
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 He states that 2 to 3 days ago he was helping a friend move equipment in the shop. Since that time he states he has felt like his right hand has been slightly weaker than usual. He states he does not have any significant numbness or tingling. He states occasionally there will be a tingling, but no pain in the hand, wrist, forearm or remainder of the arm. Nothing seems to make it better or worse. No fevers. No chills. No swelling. Review of Systems Constitutional: denies: Fever, Chills Skin: denies: Rash Musculoskeletal: denies: Neck pain, Back pain Neurologic: denies: Headache PD PAST MEDICAL HISTORY - Past Medical History Past Medical History: Yes Cardiovascular: Hypertension, High cholesterol Respiratory: None Neuro: Other Endocrine/Autoimmune: None GI: Ulcers : Kidney stones HEENT: None Psych: None Musculoskeletal: None Derm: None - Past Surgical History Past Surgical History: Yes General: Appendectomy - Present Medications Home Medications: Ambulatory Orders Medication Instructions Recorded Confirmed Bempedoic Acid/Ezetimibe [Nexlizet 1 tab PO DAILY 02/01/22 03/20/22 180-10 mg Tablet] Losartan Potassium 25 mg PO DAILY 02/01/22 03/20/22 Omeprazole 40 mg PO DAILY #30 cap 04/21/23 - Allergies Allergies/Adverse Reactions: Allergies Allergy/AdvReac Type Severity Reaction Status Date / Time No Known Drug Allergies Allergy Verified 12/14/23 12:53 - Social History Does the pt smoke?: No Smoking Status: Never smoker Does the pt drink ETOH?: Yes Does the pt have substance abuse?: No - Immunizations Immunizations are current?: Yes - POLST Patient has POLST: No PD ED PE NORMAL - Vitals Vital signs reviewed: Yes - General General: Alert and oriented X 3, No acute distress - HEENT HEENT: PERRL, Moist mucous membranes - Neck Neck: Supple, no meningeal sign, No bony TTP - Cardiac Cardiac: RRR - Respiratory Respiratory: No respiratory distress, Clear bilaterally - Derm Derm: Warm and dry - Extremities Extremities: Other (Normal examination of the right hand. Normal strength. All fingers tested against resistance including the thumb. No numbness, tingling. neg tinel and phalen sign. ) - Neuro Neuro: Alert and oriented X 3 Results - Vitals Vitals: Oxygen O2 Source Room air PD Medical Decision Making - ED course Complexity details: considered differential, d/w patient ED course: No focal neurological deficits here. No bony tenderness. Full range of motion of the hand and wrist without pain. There is normal accountant certified public strength throughout. Negative Phalen and Tinel's sign. We will have him follow-up with his doctor for further care. We can try a Velcro wrist splint to help immobilize the area to see how this will progress. I do not see any indication for emergent imaging at this time. No indication for further workup in the emergency department. No emergency medical condition at this time. Patient counseled regarding signs and symptoms for which I believe and urgent re-evaluation would be necessary. Patient with good understanding of and agreement to plan and is comfortable going home at this time This document was made in part using voice recognition software. While efforts are made to proofread this document, sound alike and grammatical errors may occur. Departure - Departure Disposition: 01 Home, Self Care Clinical Impression: Strain of hand Qualifiers: Encounter type: initial encounter Laterality: right Qualified Code(s): S66.911A - Strain of unspecified muscle, fascia and tendon at wrist and hand level, right hand, initial encounter Condition: Good Instructions: ED Sprain Hand Follow-Up: Eugene Cronin [Primary Care Provider] - Within 1 week Comments: I expect that this should improve over the next few days. He can wear the splint as needed for comfort. Please follow-up with your doctor if you do not improve within the next week. Please return if you worsen. Forms: PCP List Discharge Date/Time: 12/14/23 14:39
== END 2023-12-14 14:39 | disposition home or self-care (01) ==
LOC: ED 12:46
DX: S66.911A Strain of unspecified muscle, fascia and tendon at wrist and hand level, right hand, initial encounter (principal); X58.XXXA Exposure to other specified factors, initial encounter; Y93.89 Activity, other specified; I10 Essential (primary) hypertension; E78.00 Pure hypercholesterolemia, unspecified; Z79.899 Other long term (current) drug therapy
CPT/HCPCS: 99282; 99283

== ENCOUNTER 2024-01-01 11:56 | Emergency (ER) | payer OTHER ==
[2024-01-01 12:14] VITALS: O2SAT 100
--- NOTE | 2024-01-01 14:51 | ED Physician Documentation ---
History of Present Illness - Stated complaint Stated Complaint: CO EXPOSURE - Chief complaint Chief Complaint: General - Additonal information Additional information: 38-year-old male presents the emergency department sent over from walk-in clinic for concerns of carbon monoxide poisoning. Patient reports that someone was at his house cleaning his carpet when the carbon monoxide alarm went off for a very short period of time maybe 1 to 2 minutes tops. Fire department was dispatched to the evaluated the house and said that there is no concerns of carbon monoxide leak all windows were opened immediately. Patient had no nausea or vomiting following the episode or event no dizziness no headache or other altered mental status signs or symptoms. Patient reports that he is worried about carbon oxide poisoning and wants to pursue possible testing because he is feeling really anxious about this. PD PAST MEDICAL HISTORY - Past Medical History Past Medical History: Yes Cardiovascular: Hypertension, High cholesterol Respiratory: None Neuro: Other Endocrine/Autoimmune: None GI: Ulcers : Kidney stones HEENT: None Psych: None Musculoskeletal: None Derm: None - Past Surgical History Past Surgical History: Yes General: Appendectomy - Present Medications Home Medications: Ambulatory Orders Medication Instructions Recorded Confirmed Bempedoic Acid/Ezetimibe [Nexlizet 1 tab PO DAILY 02/01/22 03/20/22 180-10 mg Tablet] Losartan Potassium 25 mg PO DAILY 02/01/22 03/20/22 Omeprazole 40 mg PO DAILY #30 cap 04/21/23 - Allergies Allergies/Adverse Reactions: Allergies Allergy/AdvReac Type Severity Reaction Status Date / Time No Known Drug Allergies Allergy Verified 01/01/24 12:06 - Social History Does the pt smoke?: No Smoking Status: Never smoker Does the pt drink ETOH?: Yes Does the pt have substance abuse?: No - Immunizations Immunizations are current?: Yes - POLST Patient has POLST: No PD ED PE NORMAL - Vitals Vital signs reviewed: Yes - General General: Alert and oriented X 3 - HEENT HEENT: Atraumatic, PERRL, EOMI, Moist mucous membranes - Cardiac Cardiac: RRR - Respiratory Respiratory: No respiratory distress, Clear bilaterally - Neuro Neuro: Alert and oriented X 3, management retail intern 2-12 intact, No motor deficit, No sensory deficit, Normal speech Eye Opening: Spontaneous Motor: Obeys Commands Verbal: Oriented GCS Score: 15 - Psych Psych: Normal mood Results - Vitals Vitals: Vital Signs - 24 hr 01/01/24 01/01/24 12:06 14:56 Temperature 36.8 C 36.8 C Heart Rate 67 66 Respiratory 16 16 Rate Blood Pressure 150/80 H 130/88 H O2 Saturation 100 100 Oxygen O2 Source Room air PD Medical Decision Making - ED course ED course: Lengthy conversation was had with the patient in regards to his request to complete labs. I informed the patient that I would be more than willing to provide carbon monoxide labs as well as an ABG but given the fact that he had no symptoms of carbon monoxide poisoning and continues to have no symptoms of carbon monoxide poisoning and that that he was only around the carbon monoxide alarm for maximum of 2 minutes I do not believe it is warranted at this time. Patient agrees with my advice he was given strict return precautions. He told me that local fire department offered to come back to his house to recheck his carbon monoxide levels but the time prior to leaving there was no carbon monoxide levels detected and he said that he would do this for peace of mind and will not sleep in his house tonight out of an abundance of caution for his safety and his children safety. I told the patient that he is more than welcome to come in if he starts to develop any signs or symptoms of carbon monoxide poisoning. Departure - Departure Disposition: 01 Home, Self Care Clinical Impression: Carbon monoxide exposure Condition: Good Instructions: Poisoning Carbon Monoxide Comments: Thank you for trusting us with your care as we discussed I do not believe any further labs are warranted at this time given the fact that you have absolutely no signs or symptoms of carbon monoxide poisoning. Feel free to call your local fire department to have them reevaluate your house for possible carbon monoxide. Please come back to the emergency department if you are starting to have any dizziness, nausea vomiting, altered mental status, or other concerning symptoms. Forms: PCP List Discharge Date/Time: 01/01/24 14:56
[2024-01-01 15:03] VITALS: BP 130/88
== END 2024-01-01 14:56 | disposition home or self-care (01) ==
LOC: ED 11:56
DX: Z57.5 Occupational exposure to toxic agents in other industries (principal); I10 Essential (primary) hypertension
CPT/HCPCS: 99282

== ENCOUNTER 2024-03-06 14:36 | Emergency (ER) | payer OTHER ==
[2024-03-06 14:45] VITALS: O2SAT 100
--- NOTE | 2024-03-06 14:57 | ED Physician Documentation ---
PD HPI MALE - Stated complaint Stated Complaint: GROIN PX - Chief complaint Chief Complaint: Abd Pain - Additional information Additional information: 38-year-old gentleman presents emergency department for left testicular pain and penile pain. Patient says that he saw his primary care provider about a week ago and his urinalysis was unremarkable. Since then he has been having mild intermittent sporadic left testicular pain he had a referral to urology for further evaluation of this. When asked patient what brings him in today what makes it worse he said it is not gotten worse but he is starting to feel really anxious about it and wanted to come to the emergency department for further evaluation. He does say that he has a history of kidney stones, no flank pain no fevers or chills no new sexual partners no penile discharge PD PAST MEDICAL HISTORY - Past Medical History Past Medical History: Yes Cardiovascular: Hypertension, High cholesterol Respiratory: None Neuro: Other Endocrine/Autoimmune: None GI: Ulcers : Kidney stones HEENT: None Psych: None Musculoskeletal: None Derm: None - Past Surgical History Past Surgical History: Yes General: Appendectomy - Present Medications Home Medications: Ambulatory Orders Medication Instructions Recorded Confirmed Losartan Potassium 25 mg PO DAILY 02/01/22 03/06/24 Acetaminophen [Tylenol] 1 tab PO DAILY 03/06/24 03/06/24 Ibuprofen 1 tab PO PRN PRN 03/06/24 03/06/24 Rosuvastatin Calcium [Crestor] 40 mg PO DAILY 03/06/24 03/06/24 Tamsulosin [Flomax] 0.4 mg PO DAILY #30 cap 03/06/24 - Allergies Allergies/Adverse Reactions: Allergies Allergy/AdvReac Type Severity Reaction Status Date / Time No Known Drug Allergies Allergy Verified 03/06/24 14:42 - Social History Does the pt smoke?: No Smoking Status: Never smoker Does the pt drink ETOH?: Yes Does the pt have substance abuse?: No - Immunizations Immunizations are current?: Yes - POLST Patient has POLST: No PD ED PE NORMAL - Vitals Vital signs reviewed: Yes - General General: Alert and oriented X 3, No acute distress, Well developed/nourished - Cardiac Cardiac: RRR - Back Back: No CVA TTP - Derm Derm: Normal color, Warm and dry, No rash - Psych Psych: Normal mood, Normal affect PD ED PE EXPANDED - Male Male : Normal Exam, Testes descended lenny, Normal lie/cremastaric, Sports Analyst present (RN Jn Present for exam). No: Circumcised, Skin lesions, Testicular Mass, Tenderness Results - Vitals Vitals: Vital Signs - 24 hr 03/06/24 03/06/24 14:42 17:07 Temperature 36.8 C Heart Rate 73 76 Respiratory 16 14 Rate Blood Pressure 160/74 H 144/86 H O2 Saturation 100 100 Oxygen O2 Source Room air - Labs Labs: Laboratory Tests 03/06/24 15:35 Urine Color YELLOW Urine Clarity CLEAR Urine pH 6.5 Ur Specific Jackson 1.025 Urine Protein NEGATIVE Urine Glucose (UA) NEGATIVE Urine Ketones 15 H Urine Occult Blood MODERATE H Urine Nitrite NEGATIVE Urine Bilirubin NEGATIVE Urine Urobilinogen 2 H Ur Leukocyte Esterase NEGATIVE Urine RBC 6-10 H Urine WBC 0-3 Ur Squamous Epith Cells NONE SEEN Urine Bacteria None Seen Urine Mucus Moderate Strands Ur Microscopic Review INDICATED Urine Culture Comments NOT INDICATED - Rads (name of study) Testicular ultrasound Relevant Findings:: Final report received, EMP independent interpretation of test, Other (Small testicular hydrocele no torsion, 2 small epididymal head cyst measuring 9 mm and 6 mm) PD Medical Decision Making - ED course ED course: 38-year-old male presents emergency department for left testicular pain. Testicular ultrasound was complete for further evaluation of this it revealed a small testicular hydrocele bilaterally and 2 small epididymal head cyst measuring 9 mm and 6 mm. Urinalysis was positive for hematuria. This makes me suspicious that there could possibly be a very small kidney stone. Patient denies any abdominal pain or flank pain. Shared decision-making was utilized and we consider doing a CT scan but decided to hold off for now given that patient's symptoms are so minimal. Patient denies any need for medication such as Toradol or Tylenol for his pain. He has a urology appointment coming up soon. If this is a small kidney stone we would decided to go ahead and start him on some Flomax and a prescription was sent to his preferred pharmacy. Patient was given return precautions all questions answered and safe for discharge. Departure - Departure Disposition: 01 Home, Self Care Clinical Impression: Epididymal cyst Hematuria Qualifiers: Hematuria type: unspecified type Qualified Code(s): R31.9 - Hematuria, unspecified Instructions: Tamsulosin capsules Prescriptions: Tamsulosin [Flomax] 0.4 mg PO DAILY #30 cap Comments: Thank you for trusting us with your care. We have completed an ultrasound of your testicles and we have found 2 very small epididymal cysts. There is nothing to do about this. You also have a moderate amount of blood in your urine also known as hematuria. This could be related to a kidney stone although given your symptoms I do not believe further imaging is warranted. You have an appointment with urology coming up you can discuss the symptoms with them. We are going to go ahead and start you on some Flomax just incase this is a kidney stone that is passing. You will take this once a day to help with ureter and prostate dilation. Please come back to the ER if you start to notice fevers, chills, severe back pain, or any bright red blood per your urethra. Forms: PCP List Discharge Date/Time: 03/06/24 17:07
[2024-03-06 15:48] LABS: BILIRUBIN,URINE NEGATIVE (NEGATIVE); GLUCOSE, URINE (UA) NEGATIVE (NEGATIVE); KETONES,URINE (UA) 15 mg/dL (NEGATIVE); LEUKOCYTE ESTERASE, URINE NEGATIVE (NEGATIVE); NITRITE,URINE NEGATIVE (NEGATIVE); OCCULT BLOOD,URINE MODERATE (NEGATIVE); PH,URINE 6.5 PH (5.0-7.5); PROTEIN,URINE NEGATIVE (NEGATIVE); UROBILINOGEN,URINE 2 E.U./dL (NORMAL)
[2024-03-06 15:49] LABS: CLARITY,URINE CLEAR (CLEAR)
[2024-03-06 15:58] LABS: BACTERIA,URINE None Seen /HPF (None Seen); MUCUS,URINE Moderate Strands; SQUAMOUS EPITHELIAL CELL,UR NONE SEEN (<= Few); WBC,URINE 0-3 /HPF (0-3)
[2024-03-06] MEDS: TAMSULOSIN 0.4 MG CAPSULE PO STA (16:45)
--- NOTE | 2024-03-06 17:00 | Ultrasound Report ---
PROCEDURE: Testicle w/Doppler INDICATIONS: left testicular pain TECHNIQUE: Real-time scanning was performed of the scrotum and testicles, with image documentation. Color and p ulse Doppler interrogation was performed of both testicles. COMPARISON: Abdomen CT 02/02/2022 FINDINGS: Right: Testicle is normal in size at 4.8 x 2.5 x 3.2 cm, and homogenous in echotexture. Epididymis is normal in overall size and morphology. Small hydrocele. No varicoceles. Overlying scrotal skin i s normal in thickness. Left: Testicle is normal in size at 4.5 x 2.5 x 3.1 cm, and homogeneous in echotexture. Epididymis is normal in overall size and morphology. Epididymal head cysts measuring 9 mm and 6 mm. Small hydroc kassidy. No varicoceles. Overlying scrotal skin is normal in thickness. Doppler: Color and pulse Doppler demonstrate normal and symmetric arterial flow in both testicles. IMPRESSION: Small testicular hydroceles. No evidence of infection or torsion. Reviewed by: Benji Mathias MD on 03/06/2024 4:59 PM PDT Approved by: Benji Mathias MD on 03/06/2024 4:59 PM PDT Station ID: [id number]
[2024-03-06 17:08] VITALS: BP 144/86
== END 2024-03-06 17:07 | disposition home or self-care (01) ==
LOC: ED 14:36
DX: L72.9 Follicular cyst of the skin and subcutaneous tissue, unspecified (principal); I10 Essential (primary) hypertension
CPT/HCPCS: 76870; 81001; 93975; 99284; A9270; 81003; 87086